=== PATIENT | male | born 1985 | race Caucasian/White ===

== ENCOUNTER 2021-09-14 01:19 | Observation (INO) | payer OTHER, SELFPAY ==
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
[2021-09-14 01:28] VITALS: BP 159/91; PULSE 82; RESP 16; TEMP 36.3; O2SAT 97; BMI 31.6
[2021-09-14] MEDS: lidocaine 1% INJ 20 mL INJECTION (01:46)
[2021-09-14] MEDS: cephALEXin 500 mg Capsule PO (01:46)
[2021-09-14] MEDS: nicotine 21 mg Patch 1 PATCH TRANSDERMA ×2 (02:45→16:55)
[2021-09-14 04:44] LABS: Basophils % 0.3 %; Eosinophils # 0.1 10^3/uL (0.0-0.8); Eosinophils % 0.8 %; Hematocrit 45.3 % (42.0-52.0); Hemoglobin 16.1 g/dL (11.7-16.6); Lymphocytes # 2.1 10^3/uL (0.8-4.8); Lymphocytes % 19.9 %; Mean Corpuscular HGB Conc 35.5 g/dL (30.0-36.0); Mean Corpuscular Hemoglobin 30.3 pg (28.0-34.0); Mean Corpuscular Volume 85.2 fl (80-94); Mean Platelet Volume 10.1 fL (7.4-10.4); Monocytes # 0.6 10^3/uL (0.2-0.9); Monocytes % 5.1 %; Neutrophils # 7.92 10^3/uL (1.8-7.7); Neutrophils % 73.6 %; Nucleated Red Blood Cells % 0 %; Platelet Count 218 10^3/cmm (130-400); Red Blood Count 5.32 10^6/uL (4.1-5.3); Red Cell Distribution Width 13.4 % (12.1-15.1); White Blood Count 10.8 10^3/uL (4.0-10.0)
[2021-09-14 04:55] LABS: Amphetamines Screen Urine Negative (Negative); Barbiturates Screen Urine Negative (Negative); Benzodiazepines Screen Urine Negative (Negative); Cocaine Screen Urine Negative (Negative); Opiate Screen Urine Negative (Negative); PCP Screen Urine Negative (Negative); THC Screen Urine Negative (Negative)
[2021-09-14 05:00] LABS: Acetaminophen < 5.0 ug/mL (10-30); Alanine Aminotransferase 30 U/L (0-41); Albumin Level 4.5 g/dL (3.5-5.2); Alcohol Level 113 mg/dL (0-10); Alkaline Phosphatase 83 IU/L (40-130); Anion Gap 19.2 (5-19); Aspartate Amino Transferase 27 U/L (0-40); Blood Urea Nitrogen 10 mg/dL (6-20); Calcium 9.3 mg/dL (8.5-10.5); Carbon Dioxide 22 mmol/L (22-29); Chloride 99 mmol/L (98-107); Globulin 3.5 g/dL (1.3-4.6); Glomerular Filtration Rate 108.2 mL/min (90-130); Glucose 100 mg/dL (65-115); Osmolality Calculated 281 mOsm/kg (285-295); Potassium 4.2 mmol/L (3.5-5.1); Salicylate < 0.3 mg/dL (3-10); Sodium 136 mmol/L (136-145); Total Bilirubin 0.3 mg/dL (0.15-1.2)
[2021-09-14 05:25] VITALS: BP 120/78; PULSE 104; RESP 18; O2SAT 97
[2021-09-14 07:50] VITALS: BP 120/78; PULSE 104; RESP 18; TEMP 36.3; O2SAT 97
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
[2021-09-14 14:00] VITALS: BP 120/78; PULSE 94; RESP 18; TEMP 36.6; O2SAT 98
[2021-09-14] MEDS: metoprolol succinate ER (24 HR) 50 mg Tablet PO (16:55)
[2021-09-14 20:25] VITALS: BP 110/66; PULSE 69; RESP 17; TEMP 36.8; O2SAT 97
[2021-09-15 06:00] VITALS: BP 116/70; PULSE 62; RESP 17; TEMP 36.6; O2SAT 96
[2021-09-15] MEDS: metoprolol succinate ER (24 HR) 50 mg Tablet PO (08:00)
[2021-09-15] MEDS: nicotine 2 mg Gum BUCCAL ×2 (09:44→12:23)
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
[2021-09-15] MEDS: cephALEXin 500 mg Capsule PO (11:59)
[2021-09-15] MEDS: BuSPIRONE 10 mg Tablet 15 MG PO (12:00)
[2021-09-15 12:06] VITALS: BP 116/70; PULSE 62; RESP 17; TEMP 36.6; O2SAT 96
== END 2021-09-15 12:23 | disposition home or self-care (01) ==
LOC: ER 04:41 → NP 06:18
PROVIDERS: Admitting Provider Psychiatry & Neurology Psychiatry; Emergency Provider Emergency Medicine; Visit Provider Psychiatry & Neurology Psychiatry
DX: F41.9 Anxiety disorder, unspecified (principal); F32.A Depression, unspecified; F43.25 Adjustment disorder with mixed disturbance of emotions and conduct; S61.412A Laceration without foreign body of left hand, initial encounter; W01.198A Fall on same level from slipping, tripping and stumbling with subsequent striking against other object, initial encounter; F17.210 Nicotine dependence, cigarettes, uncomplicated; Z62.820 Parent-biological child conflict; Z63.0 Problems in relationship with spouse or partner
CPT/HCPCS: 12001; 73130; 80053; 80306; 80307; 85025; 99285; G0378

== ENCOUNTER 2022-12-17 00:04 | Emergency (ER) | payer OTHER, SELFPAY ==
[2022-12-17 00:15] VITALS: BP 109/71; PULSE 86; RESP 20; TEMP 36.6; O2SAT 98; BMI 28.5
--- NOTE | 2022-12-17 00:19 | ECG_ITS ---
[facility] Test Date: 2022-12-17 Pat Name: Romeo Bill Department: Room: Gender: Male Red Leader: : 1985 Requested By: Gentry Harman Order Number: [id number] Savanah MD: Chi Egan M.D. Measurements Intervals [place] Rate: 86 P: 54 [place]: 211 QRS: 43 QRSD: 128 T: 51 QT: 393 QTc: 472 Interpretive Statements SINUS RHYTHM WITH FIRST DEGREE AV BLOCK LEFT ATRIAL ENLARGEMENT [-0.15mV P-WAVE IN V1/V2] PROBABLE INFERIOR MYOCARDIAL INFARCTION , OF INDETERMINATE AGE [35 ms Q WAVE IN II/aVF] Compared to ECG 03/22/2018 22:34:56 First degree AV block now present Atrial abnormality now present Myocardial infarct finding now present Sinus bradycardia no longer present Left anterior fascicular block no longer present ST (T wave) deviation no longer present Early repolarization no longer present Electronically Signed On 12-17-2022 14:44:58 CHIEF II DISPATCHER by Chi Egan M.D. [id number] f
--- NOTE | 2022-12-17 00:24 | XRR_ITS ---
PROCEDURE INFORMATION: Exam: XR Chest Exam date and time: 12/17/2022 12:42 AM Age: 37 years old Clinical indication: Pain; Patient HX: C/O palpitations TECHNIQUE: Imaging protocol: Radiologic exam of the chest. Views: 1 view. COMPARISON: CR XR chest 2V* [id number] 12/27/2021 10:50 AM FINDINGS: Lungs: Poor inspiratory effort with some crowding of pulmonary markings and possible accentuation of the apparent heart size. Pleural spaces: Unremarkable. No pleural effusion. No pneumothorax. Heart/Mediastinum: See Lungs finding. Bones/joints: Mild thoracic spondylosis. XR/XR chest 1V portable [id number] IMPRESSION: Poor inspiratory effort with some crowding of pulmonary markings and possible accentuation of the apparent heart size.
--- NOTE | 2022-12-17 00:39 | ED_ITS ---
HPI - Arrhythmia/Palpitations General: Chief Complaint: Arrhythmia/Palpitations Stated Complaint: irregular heartbeat Time Seen by Provider: 12/17/22 00:24 Source: patient Mode of arrival: ambulatory Limitations: no limitations History of Present Illness: 37-year-old male states that he did miss his met oprolol dose tonight states he has history of cardiac hypertrophic cardiomyopathy. He states that tonight he felt like his heart was racing he is having some palpitations he is also very anxious here. He has been drinking alcohol as well. He denies any worsening proving factors he denies any fevers had some mild dyspnea. Associated symptoms: Deny nausea or vomiting Review of Systems Const: Denies: fever(s), chills, body aches or change in appetite Eyes: Denies: blurry vision or eye discomfort ENMT: Denies: throat pain or dental pain Card: Reports: palpitations Resp: Denies: dyspnea GI: Denies: abdominal pain, nausea, vomiting or diarrhea : Denies: dysuria Musc: Denies: neck pain or back pain Skin/Breast: Denies: rash Neuro: Denies: headache(s) Psych: Denies: depression Erik/Lymph: Denies: easy bruising All/Imm: Denies: urticaria PFSH ED PFSH: Medical History (Updated 12/17/22 @ 01:40 by Gentry Harman MD) Anxiety Social History (Updated 12/17/22 @ 00:49 by Gentry Harman MD) Substance/Drug Use: never Physical Exam Const: COMMON NORMALS: no acute distress, patient oriented x3 and healthy appearing GENERAL APPEARANCE: anxious HENMT: COMMON NORMALS: normocephalic and atraumatic HEAD & SCALP: normocephalic and atraumatic Eye: COMMON NORMALS: Equal, round and reactive pupils present and EOMs intact bilaterally PUPIL: Yes Equal, round and reactive pupils present Neck/C-Spine: COMMON NORMALS: full ROM and supple Chest: COMMONS NORMALS: normal inspection of the chest and normal palpation of entire chest wall Resp: COMMON NORMALS: normal respiratory effort, No retractions, No use of accessory muscles and clear to auscultation bilaterally AUSCULTATION: clear to auscultation bilaterally Cardio: COMMON NORMALS: regular rate, regular rhythm and No murmurs present (Cardio) RATE: regular rate RHYTHM: regular rhythm GI: COMMON NORMALS: Normal to inspection, nondistended, normoactive bowel sounds present, Soft to palpation, non-tender and no masses PALPATION: Yes Soft to palpation Extremity: COMMON NORMALS: normal to inspection and full ROM Neuro: COMMON NORMALS: patient oriented x3, moves all extremities and no focal motor deficits Psych: COMMON NORMALS: mental status grossly normal, Normal thought process present and cooperative THOUGHT PROCESS: Normal thought process present Skin: COMMON NORMALS: no rashes or lesions noted and no wounds GENERAL SKIN EXAM: no rashes or lesions noted Course Vital Signs: Vital signs: Vital Signs Temperature 97.9 F 12/17/22 00:15 Pulse Rate 76 12/17/22 01:18 Respiratory Rate 20 H 12/17/22 01:18 Blood Pressure 122/74 12/17/22 01:18 Pulse Oximetry 94 12/17/22 01:18 Oxygen Delivery Me thod 12/17/22 01:18 MDM - Arrhythmia/Palpitations Medical Decision Making Patient presents here with palpitations he feels much improved here patient's blood work here is normal including a normal troponin he has no signs of acute coronary syndrome he is stable for discharge he is to follow-up with PCP and return if worsening. Lab Data 12/17/22 00:54 12/17/22 00:54 Radiology Impressions Chest X-Ray 12/17/22 00:24 IMPRESSION: Poor inspiratory effort with some crowding of pulmonary markings and possible accentuation of the apparent heart size. Laboratory Results WBC 8.6 10^3/uL (4.0-10.0) 12/17/22 00:54 RBC 4.88 10^6/uL (4.1-5.3) 12/17/22 00:54 Hgb 14.5 g/dL (11.7-16.6) 12/17/22 00:54 Hct 43.1 % (42.0-52.0) 12/17/22 00:54 MCV 88.3 fl (80-94) 12/17/22 00:54 MCH 29.7 pg (28.0-34.0) 12/17/22 00:54 MCHC 33.6 g/dL (30.0-36.0) 12/17/22 00:54 RDW 13.3 % (12.1-15.1) 12/17/22 00:54 Plt Count 234 10^3/cmm (130-400) 12/17/22 00:54 MPV 9.7 fL (7.4-10.4) 12/17/22 00:54 Neut % (Auto) 38.8 % 12/17/22 00:54 Lymph % (Auto) 50.3 % 12/17/22 00:54 [place] % (Auto) 6.5 % 12/17/22 00:54 Eos % (Auto) 3.8 % 12/17/22 00:54 Baso % (Auto) 0.5 % 12/17/22 00:54 Neut # (Auto) 3.33 10^3/uL (1.8-7.7) 12/17/22 00:54 Lymph # (Auto) 4.3 10^3/uL (0.8-4.8) 12/17/22 00:54 [place] # (Auto) 0.6 10^3/uL (0.2-0.9) 12/17/22 00:54 Eos # (Auto) 0.3 10^3/uL (0.0-0.8) 12/17/22 00:54 Baso # (Auto) 0.0 10^3/uL (0.0-0.1) 12/17/22 00:54 Nucleated RBC % (auto) 0 % 12/17/22 00:54 Nucleated RBCs # 0.0 /100WBC 12/17/22 00:54 Sodium 140 mmol/L (136-145) 12/17/22 00:54 Potassium 4.1 mmol/L (3.5-5.1) 12/17/22 00:54 Chloride 104 mmol/L (98-107) 12/17/22 00:54 Carbon Dioxide 22 mmol/L (22-29) 12/17/22 00:54 Anion Gap 18.1 (5-19) 12/17/22 00:54 BUN 17 mg/dL (6-20) 12/17/22 00:54 Creatinine 0.9 mg/dL (0.7-1.2) 12/17/22 00:54 GFR Calculation 93.9 mL/min (90-130) 12/17/22 00:54 Glucose 100 mg/dL (65-115) 12/17/22 00:54 Calculated Osmolality 292 mOsm/kg (285-295) 12/17/22 00:54 Calcium 9.0 mg/dL (8.5-10.5) 12/17/22 00:54 Total Bilirubin 0.2 mg/dL (0.15-1.2) 12/17/22 00:54 AST 18 U/L (0-40) 12/17/22 00:54 ALT 18 U/L (0-41) 12/17/22 00:54 Alkaline Phosphatase 103 U/L (40-130) 12/17/22 00:54 Troponin T Baseline 11 ng/L (0-15) 12/17/22 00:54 Total Protein 7.4 g/dL (6.6-8.7) 12/17/22 00:54 Albumin 4.5 g/dL (3.5-5.2) 12/17/22 00:54 Globulin 2.9 g/dL (1.3-4.6) 12/17/22 00:54 Ethyl Alcohol 211 mg/dL (0-10) H 12/17/22 00:54 EKG Data EKG 1: I personally reviewed and interpreted this EKG as follows: EKG interpretation date: 12/17/22 EKG interpretation time: 00:12 Interpretation: nsr hr [address] or t wave abnormalities qrs 128 qtc 437 Other EKG comments: Chest X-Ray 12/17/22 00:24 IMPRESSION: Poor inspiratory effort with some crowding of pulmonary markings and possible accentuation of the apparent heart size. Discharge Plan Discharge Patient Disposition: Home Clinical Impression: Palpitations Condition: Stable Prescriptions: No Action buspirone 10 mg Tablet 15 mg PO BID 30 Days Qty: 90 1RF Discharge Orders: Discharge ED (Routine); Ordered 12/17/22 Ordered By: Gentry Harman Discharge Diet: Advance as tolerated Discharge Activity: Resume usual activity Patient Instructions: Heart Palpitations (ED) Coding Level of Care Code ED Higher Education Administrator for Chg Fwd Exam Comprehensive
[2022-12-17] MEDS: metoprolol succinate ER (24 HR) 50 mg Tablet PO (00:58)
[2022-12-17 00:59] LABS: Basophils % 0.5 %; Eosinophils # 0.3 10^3/uL (0.0-0.8); Eosinophils % 3.8 %; Hematocrit 43.1 % (42.0-52.0); Hemoglobin 14.5 g/dL (11.7-16.6); Lymphocytes # 4.3 10^3/uL (0.8-4.8); Lymphocytes % 50.3 %; Mean Corpuscular HGB Conc 33.6 g/dL (30.0-36.0); Mean Corpuscular Hemoglobin 29.7 pg (28.0-34.0); Mean Corpuscular Volume 88.3 fl (80-94); Mean Platelet Volume 9.7 fL (7.4-10.4); Monocytes # 0.6 10^3/uL (0.2-0.9); Monocytes % 6.5 %; Neutrophils # 3.33 10^3/uL (1.8-7.7); Neutrophils % 38.8 %; Nucleated Red Blood Cells % 0 %; Platelet Count 234 10^3/cmm (130-400); Red Blood Count 4.88 10^6/uL (4.1-5.3); Red Cell Distribution Width 13.3 % (12.1-15.1); White Blood Count 8.6 10^3/uL (4.0-10.0)
[2022-12-17] MEDS: sodium chloride 0.9% 1,000 ML 999 ML IV (00:59)
[2022-12-17 01:18] VITALS: BP 122/74; PULSE 76; RESP 20; O2SAT 94
[2022-12-17 01:23] LABS: Alanine Aminotransferase 18 U/L (0-41); Albumin Level 4.5 g/dL (3.5-5.2); Alcohol Level 211 mg/dL (0-10); Alkaline Phosphatase 103 U/L (40-130); Anion Gap 18.1 (5-19); Aspartate Amino Transferase 18 U/L (0-40); Blood Urea Nitrogen 17 mg/dL (6-20); Carbon Dioxide 22 mmol/L (22-29); Chloride 104 mmol/L (98-107); Globulin 2.9 g/dL (1.3-4.6); Glomerular Filtration Rate 93.9 mL/min (90-130); Glucose 100 mg/dL (65-115); Osmolality Calculated 292 mOsm/kg (285-295); Potassium 4.1 mmol/L (3.5-5.1); Sodium 140 mmol/L (136-145); Total Bilirubin 0.2 mg/dL (0.15-1.2); Total Protein 7.4 g/dL (6.6-8.7)
[2022-12-17 01:24] LABS: Troponin(5th) Baseline 11 ng/L (0-15)
[2022-12-17 01:53] VITALS: BP 122/74; PULSE 100; RESP 18; O2SAT 95
== END 2022-12-17 01:57 | disposition home or self-care (01) ==
PROVIDERS: Emergency Provider Emergency Medicine
DX: R00.2 Palpitations (principal)
CPT/HCPCS: 71045; 80053; 80307; 84484; 85025; 93005; 99285; J7030

== ENCOUNTER 2023-06-12 15:11 | Emergency (ER) | payer OTHER, SELFPAY ==
[2023-06-12 15:17] VITALS: BP 152/80; PULSE 56; RESP 18; TEMP 36.7; O2SAT 99; BMI 28.5
--- NOTE | 2023-06-12 15:26 | ECG_ITS ---
[facility] Test Date: 2023-06-12 Pat Name: Romeo Bill Department: Room: Gender: Male Restaurant Manager: : 1985 Requested By: Jaspal Owen Order Number: [id number] Savanah MD: Ananya Vasquez M.D. Measurements Intervals [place] Rate: 57 P: 17 [place]: 185 QRS: 13 QRSD: 126 T: 54 QT: 444 QTc: 433 Interpretive Statements SINUS BRADYCARDIA POSSIBLE LEFT ATRIAL ENLARGEMENT [-0.1mV P-WAVE IN V1/V2] POSSIBLE RIGHT VENTRICULAR CONDUCTION DELAY [RSR (QR) IN V1/V2] Compared to ECG 12/17/2022 00:12:17 Sinus rhythm no longer present First degree AV block no longer present Myocardial infarct finding no longer present Electronically Signed On 06-12-2023 21:43:01 CDT by Ananya Vasquez M.D. [email or web address] [email or web address] [email or web address] Therapeuticsohio [facility].[employer]store/NU/[id number] f
--- NOTE | 2023-06-12 15:48 | XR_ITS ---
WS: [id number] Portable AP upright chest, 06/12/2023 Clinical Data: chest pain Comparison: Portable chest, 12/17/2022 Findings: No nodules, masses or effusions are seen. There is a patchy opacity at the right cardiophre kamron angle which may represent atelectasis. This opacity is not changed compared to 12/17/2022 The hear t is normal. The pulmonary vascularity is not increased. No pneumonia or pneumothorax is seen. XR/XR chest 1V portable [id number] Impression: Probable atelectasis at the right cardiophrenic angle.
--- NOTE | 2023-06-12 15:49 | ECG_ITS ---
[facility] Test Date: 2023-06-12 Pat Name: Romeo Bill Department: Room: Gender: Male Hr Consultant: : 1985 Requested By: Jaspal Owen Order Number: [id number] Savanah MD: Ananya Vasquez M.D. Measurements Intervals [place] Rate: 56 P: 55 MT: 193 QRS: 32 QRSD: 113 T: 62 QT: 442 QTc: 429 Interpretive Statements SINUS BRADYCARDIA POSSIBLE LEFT ATRIAL ENLARGEMENT [-0.1mV P-WAVE IN V1/V2] MODERATE INTRAVENTRICULAR CONDUCTION DELAY [110+ ms QRS DURATION] Compared to ECG 06/12/2023 15:23:46 Intraventricular conduction delay now present Electronically Signed On 06-12-2023 21:42:45 CDT by Ananya Vasquez M.D. [email or web address] [email or web address] [email or web address]/[id number]
--- NOTE | 2023-06-12 15:58 | W.ED.CHESTPA ---
Documented by User: Jaspal Wong DO 06/16/23 07:19 HPI - Chest Pain General: Chief Complaint: Chest Pain Stated Complaint: Chest pain, Left side numbness, headpain Time Seen by Provider: 06/12/23 15:39 Source: patient Mode of arrival: ambulatory History of Present Illness: 37-year-old male with a history of hypertrophic cardiomyopathy presents to the emergency room with complaints of chest pain for the last hour and a half. Patient has been evaluated at [place] by cardiology at [facility] [place] and they had recommend a surgery for myomectomy for his hypertrophic obstructive cardiomyopathy. He states he feels like he has a squeezing pressure sensation in his chest. Prior to arrival he had an EKG done at [facility] which she showed to me after he did that here for [facility]. We did to see the patient the computer read on the EKG shows acute ST elevation FL. Compared to previous EKGs it looks similar discussed these and reviewed with Dr. Gutierrez she did not feel there was a ST elevation FL at this time. MD complaint: chest pain Pertinent past history: coronary artery disease Onset (ago): minute(s) Onset: during rest and during exertion Pain location: substernal and left chest Pain radiation: none Severity: mild Quality: tightness and aching Relieving factors: nothing Exacerbating factors: nothing Context: recent illness Associated symptoms: Deny abdominal pain, diaphoresis, dyspnea, fever(s), leg edema, nausea, palpitations, sense of impending doom, syncope or vomiting Treatment prior to arrival: none Review of Systems Const: Denies: fever(s), fatigue, malaise or diaphoresis Card: Denies: chest pain, palpitations or syncope Resp: Denies: dyspnea, productive cough, non-productive cough or wheezing GI: Denies: abdominal pain, nausea or vomiting : Denies: flank pain, dysuria, urinary frequency or urinary urgency Musc: Denies: neck pain or back pain Skin/Breast: Denies: rash or pruritus PFSH ED PFSH: Medical History Anxiety Social History Substance/Drug Use: never Physical Exam Const: GENERAL APPEARANCE: cooperative and comfortable ORIENTATION/CONSCIOUSNESS: Yes awake, Yes oriented to person, Yes oriented to place and Yes oriented to time HENMT: COMMON NORMALS: normocephalic, atraumatic and hearing grossly normal bilaterally HEAD & SCALP: normocephalic and atraumatic Resp: COMMON NORMALS: normal respiratory effort, No retractions, No use of accessory muscles and clear to auscultation bilaterally AUSCULTATION: clear to auscultation bilaterally Cardio: COMMON NORMALS: regular rate, regular rhythm and No murmurs present (Cardio) RATE: regular rate RHYTHM: regular rhythm GI: COMMON NORMALS: Soft to palpation and No hepatosplenomegaly present AUSCULTATION: Yes normoactive bowel sounds PALPATION: Yes Soft to palpation, No Tenderness to palpation present (GI), No Guarding due to palpation present (GI) and Yes No hepatosplenomegaly present Extremity: COMMON NORMALS: normal to inspection, capillary refill normal, no clubbing, cyanosis or edema, no calf tenderness and no pedal edema Neuro: SENSORIUM/ORIENTATION: Yes oriented to person, Yes oriented to place and Yes oriented to time Skin: COMMON NORMALS: no rashes or lesions noted GENERAL SKIN EXAM: no rashes or lesions noted Course Vital Signs: Vital signs: Vital Signs Temperature 98.1 F 06/12/23 15:17 Pulse Rate 60 06/12/23 20:15 Respiratory Rate 18 06/12/23 20:15 Blood Pressure 154/85 06/12/23 20:15 Pulse Oximetry 98 06/12/23 20:15 Oxygen Delivery Me thod Room Air 06/12/23 19:01 MDM - Chest Pain Medical Decision Making Care signed out to Dr. Harman at change of shift. See final notes for diagnosis and disposition. Patient presents with chest pain atypical in nature his initial repeat troponins here are normal he feels much improved x-ray is normal no signs of acute coronary syndrome no signs of dissection or PE he is stable for discharge he is follow-up with PCP and return if worsening. Lab Data 06/12/23 16:23 06/12/23 16:23 Radiology Impressions Chest X-Ray 06/12/23 15:48 Impression: Probable atelectasis at the right cardiophrenic angle. Laboratory Results WBC 8.6 10^3/uL (4.0-10.0) 06/12/23 16:23 RBC 5.02 10^6/uL (4.1-5.3) 06/12/23 16: Hgb 14.9 g/dL (11.7-16.6) 06/12/23 16: Hct 44.9 % (42.0-52.0) 06/12/23 16: MCV 89.4 fl (80-94) 06/12/23 16: MCH 29.7 pg (28.0-34.0) 06/12/23 16: MCHC 33.2 g/dL (30.0-36.0) 06/12/23 16: RDW 14.3 % (12.1-15.1) 06/12/23 16: Plt Count 204 10^3/cmm (130-400) 06/12/23 16: MPV 10.0 fL (7.4-10.4) 06/12/23 16: Neut % (Auto) 57.1 % 06/12/23 16: Lymph % (Auto) 31.7 % 06/12/23 16:23 [place] % (Auto) 7.1 % 06/12/23 16: Eos % (Auto) 3.4 % 06/12/23 16: Baso % (Auto) 0.5 % 06/12/23 16: Neut # (Auto) 4.90 10^3/uL (1.8-7.7) 06/12/23 16: Lymph # (Auto) 2.7 10^3/uL (0.8-4.8) 06/12/23 16: [place] # (Auto) 0.6 10^3/uL (0.2-0.9) 06/12/23 16: Eos # (Auto) 0.3 10^3/uL (0.0-0.8) 06/12/23: Baso # (Auto) 0.0 10^3/uL (0.0-0.1) 06/12/23 16: Nucleated RBC % (auto) 0 % 06/12/23 16: Nucleated RBCs # 0.0 /100WBC 06/12/23 16: Sodium 140 mmol/L (136-145) 06/12/23 16:23 Potassium 4.6 mmol/L (3.5-5.1) 06/12/23 16:23 Chloride 103 mmol/L (98-107) 06/12/23 16:23 Carbon Dioxide 28 mmol/L (22-29) 06/12/23 16:23 Anion Gap 13.6 (5-19) 06/12/23 16:23 BUN 13 mg/dL (6-20) 06/12/23 16:23 Creatinine 0.9 mg/dL (0.7-1.2) 06/12/23 16:23 GFR Calculation 93.9 mL/min (90-130) 06/12/23 16:23 Glucose 88 mg/dL (65-115) 06/12/23 16:23 Calculated Osmolality 290 mOsm/kg (285-295) 06/12/23 16:23 Calcium 9.2 mg/dL (8.5-10.5) 06/12/23 16:23 Total Bilirubin 0.2 mg/dL (0.15-1.2) 06/12/23 16:23 AST 19 U/L (0-40) 06/12/23 16:23 ALT 17 U/L (0-41) 06/12/23 16:23 Alkaline Phosphatase 80 U/L (40-130) 06/12/23 16:23 Troponin T Baseline 11 ng/L (0-15) 06/12/23 16:23 Troponin T 120 Minute 8.58 ng/L (0-15) 06/12/23 18:31 Delta Troponin T -2.42 ABS# (0-10) L 06/12/23 18:31 Total Protein 6.6 g/dL (6.6-8.7) 06/12/23 16:23 Albumin 4.2 g/dL (3.5-5.2) 06/12/23 16:23 Globulin 2.4 g/dL (1.3-4.6) 06/12/23 16:23 Lipase 21 U/L (13-60) 06/12/23 18:31 Ethyl Alcohol < 10 mg/dL (0-10) 06/12/23 18:31 Discharge Plan Discharge Patient Disposition: Home Clinical Impression: Chest pain Condition: Stable Prescriptions: No Action metoprolol succinate 50 mg tablet extended release 24 hr 50 mg PO DAILY levothyroxine 50 mcg tablet 50 mcg PO DAILY buspirone 15 mg tablet 15 mg PO DAILY Discharge Orders: Discharge ED (Routine); Ordered 06/12/23 Ordered By: Gentry Harman Referrals: Cirilo Ortiz MD [Primary Care Provider] - 1-3 days Discharge Diet: Advance as tolerated Discharge Activity: Resume usual activity Patient Instructions: Chest Pain (ED) Coding Level of Care Code ED Fuel Truck Driver for Chg Fwd Documented by User: Gentry Harman MD 06/12/23 19:52 HPI - Chest Pain General: Chief Complaint: Chest Pain Stated Complaint: Chest pain, Left side numbness, headpain Time Seen by Provider: 06/12/23 15:39 History of Present Illness: . [facility] ED PFSH: Medical History Anxiety Social History Substance/Drug Use: never Course Vital Signs: Vital signs: Vital Signs Temperature 98.1 F 06/12/23 15:17 Pulse Rate 60 06/12/23 20:15 Respiratory Rate 18 06/12/23 20:15 Blood Pressure 154/85 06/12/23 20:15 Pulse Oximetry 98 06/12/23 20:15 Oxygen Delivery Me thod Room Air 06/12/23 19:01 MDM - Chest Pain Medical Decision Making Patient presents with chest pain atypical in nature his initial repeat troponins here are normal he feels much improved x-ray is normal no signs of acute coronary syndrome no signs of dissection or PE he is stable for discharge he is follow-up with PCP and return if worsening. Medical Records I reviewed the patient's medical records. Lab Data I reviewed the patient's lab results. 06/12/23 16:23 06/12/23 16:23 Radiology Impressions Chest X-Ray 06/12/23 15:48 Impression: Probable atelectasis at the right cardiophrenic angle. Laboratory Results WBC 8.6 10^3/uL (4.0-10.0) 06/12/23 16: RBC 5.02 10^6/uL (4.1-5.3) 06/12/23 16: Hgb 14.9 g/dL (11.7-16.6) 06/12/23 16: Hct 44.9 % (42.0-52.0) 06/12/23 16: MCV 89.4 fl (80-94) 06/12/23 16: MCH 29.7 pg (28.0-34.0) 06/12/23 16: MCHC 33.2 g/dL (30.0-36.0) 06/12/23: RDW 14.3 % (12.1-15.1) 06/12/23 16: Plt Count 204 10^3/cmm (130-400) 06/12/23 16: MPV 10.0 fL (7.4-10.4) 06/12/23 16: Neut % (Auto) 57.1 % 06/12/23 16: Lymph % (Auto) 31.7 % 06/12/23 16: [place] % (Auto) 7.1 % 06/12/23 16: Eos % (Auto) 3.4 % 06/12/23: Baso % (Auto) 0.5 % 06/12/23: Neut # (Auto) 4.90 10^3/uL (1.8-7.7) 06/12/23 16: Lymph # (Auto) 2.7 10^3/uL (0.8-4.8) 06/12/23 16: [place] # (Auto) 0.6 10^3/uL (0.2-0.9) 06/12/23: Eos # (Auto) 0.3 10^3/uL (0.0-0.8) 06/12/23 16: Baso # (Auto) 0.0 10^3/uL (0.0-0.1) 06/12/23 16: Nucleated RBC % (auto) 0 % 06/12/23 16: Nucleated RBCs # 0.0 /100WBC 06/12/23 16:23 Sodium 140 mmol/L (136-145) 06/12/23 16:23 Potassium 4.6 mmol/L (3.5-5.1) 06/12/23 16:23 Chloride 103 mmol/L (98-107) 06/12/23 16:23 Carbon Dioxide 28 mmol/L (22-29) 06/12/23 16:23 Anion Gap 13.6 (5-19) 06/12/23 16:23 BUN 13 mg/dL (6-20) 06/12/23 16:23 Creatinine 0.9 mg/dL (0.7-1.2) 06/12/23 16:23 GFR Calculation 93.9 mL/min (90-130) 06/12/23 16: Glucose 88 mg/dL (65-115) 06/12/23 16:23 Calculated Osmolality 290 mOsm/kg (285-295) 06/12/23 16:23 Calcium 9.2 mg/dL (8.5-10.5) 06/12/23 16:23 Total Bilirubin 0.2 mg/dL (0.15-1.2) 06/12/23 16:23 AST 19 U/L (0-40) 06/12/23 16:23 ALT 17 U/L (0-41) 06/12/23 16:23 Alkaline Phosphatase 80 U/L (40-130) 06/12/23 16:23 Troponin T Baseline 11 ng/L (0-15) 06/12/23 16:23 Troponin T 120 Minute 8.58 ng/L (0-15) 06/12/23 18:31 Delta Troponin T -2.42 ABS# (0-10) L 06/12/23 18:31 Total Protein 6.6 g/dL (6.6-8.7) 06/12/23 16:23 Albumin 4.2 g/dL (3.5-5.2) 06/12/23 16:23 Globulin 2.4 g/dL (1.3-4.6) 06/12/23 16:23 Lipase 21 U/L (13-60) 06/12/23 18:31 Ethyl Alcohol < 10 mg/dL (0-10) 06/12/23 18:31 Discharge Plan Discharge Patient Disposition: Home Clinical Impression: Chest pain Condition: Stable Prescriptions: No Action metoprolol succinate 50 mg tablet extended release 24 hr 50 mg PO DAILY levothyroxine 50 mcg tablet 50 mcg PO DAILY buspirone 15 mg tablet 15 mg PO DAILY Discharge Orders: Discharge ED (Routine); Ordered 06/12/23 Ordered By: Gentry Harman Referrals: Cirilo Ortiz MD [Primary Care Provider] - 1-3 days Discharge Diet: Advance as tolerated Discharge Activity: Resume usual activity Patient Instructions: Chest Pain (ED) Coding Level of Care Code ED Fuel Truck Driver for Stephanie Pineda
[2023-06-12 16:23] VITALS: BP 125/65
[2023-06-12 16:54] LABS: Basophils % 0.5 %; Eosinophils # 0.3 10^3/uL (0.0-0.8); Eosinophils % 3.4 %; Hematocrit 44.9 % (42.0-52.0); Hemoglobin 14.9 g/dL (11.7-16.6); Lymphocytes # 2.7 10^3/uL (0.8-4.8); Lymphocytes % 31.7 %; Mean Corpuscular HGB Conc 33.2 g/dL (30.0-36.0); Mean Corpuscular Hemoglobin 29.7 pg (28.0-34.0); Mean Corpuscular Volume 89.4 fl (80-94); Monocytes # 0.6 10^3/uL (0.2-0.9); Monocytes % 7.1 %; Neutrophils % 57.1 %; Nucleated Red Blood Cells % 0 %; Platelet Count 204 10^3/cmm (130-400); Red Blood Count 5.02 10^6/uL (4.1-5.3); Red Cell Distribution Width 14.3 % (12.1-15.1); White Blood Count 8.6 10^3/uL (4.0-10.0)
[2023-06-12 17:21] LABS: Alanine Aminotransferase 17 U/L (0-41); Albumin Level 4.2 g/dL (3.5-5.2); Alkaline Phosphatase 80 U/L (40-130); Aspartate Amino Transferase 19 U/L (0-40); Blood Urea Nitrogen 13 mg/dL (6-20); Calcium 9.2 mg/dL (8.5-10.5); Carbon Dioxide 28 mmol/L (22-29); Chloride 103 mmol/L (98-107); Globulin 2.4 g/dL (1.3-4.6); Glomerular Filtration Rate 93.9 mL/min (90-130); Glucose 88 mg/dL (65-115); Osmolality Calculated 290 mOsm/kg (285-295); Sodium 140 mmol/L (136-145); Total Bilirubin 0.2 mg/dL (0.15-1.2); Total Protein 6.6 g/dL (6.6-8.7)
[2023-06-12 17:24] LABS: Troponin(5th) Baseline 11 ng/L (0-15)
[2023-06-12 17:33] LABS: Anion Gap 13.6 (5-19); Potassium 4.6 mmol/L (3.5-5.1)
--- NOTE | 2023-06-12 17:49 | ECG_ITS ---
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 Measurements Intervals [place] Rate: 57 P: 18 DE: 189 QRS: 19 QRSD: 121 T: 67 QT: 453 QTc: 442 Interpretive Statements SINUS BRADYCARDIA POSSIBLE LEFT ATRIAL ENLARGEMENT [-0.1mV P-WAVE IN V1/V2] POSSIBLE RIGHT VENTRICULAR CONDUCTION DELAY [RSR (QR) IN V1/V2] MODERATE ST DEPRESSION [0.05+ mV ST DEPRESSION] Compared to ECG 06/12/2023 16:41:23 ST (T wave) deviation now present Intraventricular conduction delay no longer present Electronically Signed On 06-12-2023 21:44:16 CDT by Ananya Vasquez M.D. [id number]
[2023-06-12 18:07] VITALS: PULSE 68; RESP 18; O2SAT 98
--- NOTE | 2023-06-12 19:00 | PC.NURSE ---
Pt report recieved from Armida PULIDO. Pt laying in bed, pt does not appear to be in distress at this time. Pt denies needs at this time.
[2023-06-12 19:01] VITALS: O2SAT 98
[2023-06-12 19:40] LABS: Troponin 5 2HR 8.58 ng/L (0-15)
[2023-06-12 19:41] LABS: Lipase 21 U/L (13-60)
[2023-06-12 19:42] LABS: Alcohol Level < 10 mg/dL (0-10)
[2023-06-12 19:55] LABS: Troponin 5 2HR Delta -2.42 ABS# (0-10)
[2023-06-12 20:15] VITALS: BP 154/85; PULSE 60; RESP 18; O2SAT 98
== END 2023-06-12 20:17 | disposition home or self-care (01) ==
PROVIDERS: Family Medicine; Emergency Provider Emergency Medicine; PCP Family Medicine
DX: R07.9 Chest pain, unspecified (principal)
CPT/HCPCS: 36415; 71045; 80053; 80307; 83690; 84484; 85025; 93005; 99285

== ENCOUNTER 2023-11-04 03:25 | Emergency (ER) | payer OTHER, SELFPAY ==
--- NOTE | 2023-11-04 03:30 | ECG_ITS ---
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 Measurements Intervals [place] Rate: 80 P: 22 NC: 251 QRS: 119 QRSD: 115 T: -6 QT: 398 QTc: 461 Interpretive Statements SINUS RHYTHM WITH FIRST DEGREE AV BLOCK POSSIBLE LEFT ATRIAL ENLARGEMENT [-0.1mV P-WAVE IN V1/V2] POSSIBLE RIGHT VENTRICULAR HYPERTROPHY POSSIBLE ANTERIOR MYOCARDIAL INFARCTION , OF INDETERMINATE AGE PROBABLE INFERIOR MYOCARDIAL INFARCTION , OF INDETERMINATE AGE Compared to ECG 06/12/2023 18:29:22 First degree AV block now present Myocardial infarct finding now present Sinus bradycardia no longer present ST (T wave) deviation no longer present Electronically Signed On 11-04-2023 6:27:14 SUPPLIER QUALITY ENGINEERING MANAGER by Ananya Vasquez M.D. [id number] f
[2023-11-04 03:31] VITALS: BP 133/93; PULSE 80; RESP 20; TEMP 36.6; O2SAT 98
--- NOTE | 2023-11-04 03:43 | XRR_ITS ---
PROCEDURE INFORMATION: Exam: XR Chest Exam date and time: 11/04/2023 3:48 AM Age: 38 years old Clinical indication: Chest wall pain and other: Palps; Patient HX: Patient has a surgery for defibrillator to be put in Friday, came in today for major chest pain and palps; Additional info: Cxp TECHNIQUE: Imaging protocol: Radiologic exam of the chest. Views: 1 view. COMPARISON: CR XR chest 1V portable [id number] 06/12/2023 3:57 PM FINDINGS: Lungs: Hyperinflation and mild interstitial prominence, without acute airspace disease. Pleural spaces: No pleural effusion. Heart/Mediastinum: Epicardial fat accentuates the cardiac silhouette. Bones/joints: Unremarkable. XR/XR chest 1V portable [id number] IMPRESSION: Hyperinflation and mild interstitial prominence, without acute airspace disease.
[2023-11-04 03:51] LABS: Basophils % 0.5 %; Eosinophils # 0.5 10^3/uL (0.0-0.8); Eosinophils % 5.6 %; Hematocrit 47.7 % (37-53); Lymphocytes # 4.3 10^3/uL (0.8-4.8); Lymphocytes % 53.9 %; Mean Corpuscular HGB Conc 33.5 g/dL (30-55); Mean Corpuscular Hemoglobin 29.6 pg (27-33); Mean Corpuscular Volume 88.2 fl (82-101); Mean Platelet Volume 9.8 fL (7.4-10.4); Monocytes # 0.4 10^3/uL (0.2-0.9); Monocytes % 5.5 %; Neutrophils # 2.74 10^3/uL (1.8-7.7); Neutrophils % 34.3 %; Nucleated Red Blood Cells % 0 %; Platelet Count 224 10^3/cmm (157-399); Red Blood Count 5.41 10^6/uL (3.85-5.65); Red Cell Distribution Width 13.7 % (12.1-15.1); White Blood Count 8.01 10^3/uL (3.29-11.43)
[2023-11-04 04:10] LABS: Troponin(5th) Baseline 9 ng/L (0-15)
[2023-11-04 04:20] LABS: Alanine Aminotransferase 25 U/L (0-41); Albumin Level 4.9 g/dL (3.5-5.2); Alcohol Level 257 mg/dL (0-10); Alkaline Phosphatase 109 U/L (40-130); Anion Gap 19.5 (5-19); Aspartate Amino Transferase 24 U/L (0-40); Blood Urea Nitrogen 14 mg/dL (6-20); Calcium 9.8 mg/dL (8.5-10.5); Carbon Dioxide 22 mmol/L (22-29); Chloride 103 mmol/L (98-107); Globulin 3.4 g/dL (1.3-4.6); Glomerular Filtration Rate 93.5 mL/min (90-130); Glucose 100 mg/dL (65-115); NT Pro B Type Natriuretic Pept 310 pg/mL (0-125); Osmolality Calculated 291 mOsm/kg (285-295); Potassium 4.5 mmol/L (3.5-5.1); Sodium 140 mmol/L (136-145); Total Bilirubin 0.2 mg/dL (0.15-1.2); Total Protein 8.3 g/dL (6.6-8.7)
[2023-11-04 04:26] VITALS: BP 133/93; PULSE 80; RESP 20; TEMP 36.6; O2SAT 98
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
== END 2023-11-04 04:28 | disposition left against medical advice (07) ==
PROVIDERS: Emergency Provider Internal Medicine; PCP Family Medicine
DX: R07.89 Other chest pain (principal); F10.129 Alcohol abuse with intoxication, unspecified; Y90.8 Blood alcohol level of 240 mg/100 ml or more; Z53.29 Procedure and treatment not carried out because of patient's decision for other reasons
CPT/HCPCS: 71045; 80053; 80307; 83880; 84484; 85025; 93005; 99285

== ENCOUNTER 2024-06-22 18:11 | Emergency (ER) | payer OTHER, SELFPAY ==
[2024-06-22 18:14] VITALS: BP 142/89; PULSE 62; RESP 16; TEMP 36.4; O2SAT 99
--- NOTE | 2024-06-22 18:19 | ECG_ITS ---
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 Measurements Intervals [place] Rate: 61 P: 30 VT: 192 QRS: 64 QRSD: 129 T: 54 QT: 416 QTc: 420 Interpretive Statements SINUS RHYTHM POSSIBLE LEFT ATRIAL ENLARGEMENT [-0.1mV P-WAVE IN V1/V2] PROBABLE INFERIOR MYOCARDIAL INFARCTION , OF INDETERMINATE AGE [35 ms Q WAVE IN II/aVF] Compared to ECG 11/04/2023 03:30:03 First degree AV block no longer present Myocardial infarct finding still present Electronically Signed On 06-23-2024 10:32:36 CDT by Chi Egan M.D. [email or web address].Dental [email or web address]/store/[id number] f
--- NOTE | 2024-06-22 18:19 | XRR_ITS ---
PROCEDURE INFORMATION: Exam: XR Chest Exam date and time: 06/22/2024 6:23 PM Age: 38 years old Clinical indication: Pain; Chest pressure; Prior surgery; Surgery date: 6+ months; Surgery type: Defib; Additional info: Cp TECHNIQUE: Imaging protocol: Radiologic exam of the chest. Views: 1 view. COMPARISON: CR XR chest 1V portable [id number] 11/04/2023 3:48 AM FINDINGS: Tubes, catheters and devices: commission broker in place. Lungs: No focal consolidation or other acute appearing pulmonary opacity. Pleural spaces: No pleural effusion or pneumothorax noted. Heart/Mediastinum: There is cardiomegaly. Bones/joints: No acute osseous abnormality. Intraperitoneal space: There is no free intraperitoneal gas. XR/XR chest 1V portable [id number] IMPRESSION: No acute cardiopulmonary disease.
[2024-06-22 18:38] LABS: Basophils # 0.1 10^3/uL (0.0-0.1); Basophils % 0.7 %; Eosinophils # 0.4 10^3/uL (0.0-0.8); Eosinophils % 5.9 %; Hematocrit 45.6 % (37-53); Lymphocytes # 3.1 10^3/uL (0.8-4.8); Mean Corpuscular HGB Conc 33.1 g/dL (30-55); Mean Corpuscular Hemoglobin 29.3 pg (27-33); Mean Corpuscular Volume 88.4 fl (82-101); Mean Platelet Volume 9.8 fL (7.4-10.4); Monocytes # 0.6 10^3/uL (0.2-0.9); Monocytes % 7.8 %; Neutrophils # 3.03 10^3/uL (1.8-7.7); Neutrophils % 42.5 %; Nucleated Red Blood Cells % 0 %; Platelet Count 205 10^3/cmm (157-399); Red Blood Count 5.16 10^6/uL (3.85-5.65); Red Cell Distribution Width 13.7 % (12.1-15.1); White Blood Count 7.14 10^3/uL (3.29-11.43)
[2024-06-22 18:54] LABS: Troponin(5th) Baseline 8 ng/L (0-15)
--- NOTE | 2024-06-22 19:09 | ED_ITS ---
HPI - Chest Pain 2 General: Chief Complaint: Chest Pain Stated Complaint: Cp Time Seen by Provider: 06/22/24 19:00 History of Present Illness: Patient presents to the ER with chest pressure and intermittent chest pain for the last 5 days approximately. 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 He got his last shipment on Friday and he is on for sure if the medicine is working or not because he is having all of his old symptoms back. Review of Systems 2 General: Reports: 10 or more systems reviewed and unremarkable except in HPI and below PFSH ED 2 PFSH: Medical History Anxiety Social History Substance/Drug Use: never Physical Exam 2 Const: COMMON NORMALS: no acute distress, average body habitus, patient oriented x3, no limitations, healthy appearing, alert and well nourished HENMT: COMMON NORMALS: normocephalic, atraumatic, hearing grossly normal bilaterally, external ears normal, Normal external nose present and moist oral mucous membranes HEAD & SCALP: normocephalic and atraumatic NOSE: Normal external nose present EXTERNAL EAR: Yes external ears normal Neck/C-Spine: COMMON NORMALS: full ROM, no lymphadenopathy, supple, no meningeal signs, no JVD and Thyroid normal THYROID: Thyroid normal Chest: COMMONS NORMALS: normal inspection of the chest and normal palpation of entire chest wall Resp: COMMON NORMALS: normal respiratory effort, No retractions, No use of accessory muscles and clear to auscultation bilaterally AUSCULTATION: clear to auscultation bilaterally Cardio: COMMON NORMALS: no JVD, regular rate, regular rhythm, S1 normal heart sound present, S2 normal heart sound present, No gallops present (Cardio) and No clicks present (Cardio); negative for No murmurs present (Cardio) (3/6 systolic ejection murmur) RATE: regular rate RHYTHM: regular rhythm HEART SOUNDS: S1 normal heart sound present and S2 normal heart sound present GI: COMMON NORMALS: Normal to inspection, nondistended, normoactive bowel sounds present, Soft to palpation, non-tender, No hepatosplenomegaly present and no masses PALPATION: Yes Soft to palpation and Yes No hepatosplenomegaly present Neuro: COMMON NORMALS: patient oriented x3 SENSORIUM/ORIENTATION: Yes alert MENINGEAL SIGNS: Yes no meningeal signs Course 2 Vital Signs: Vital signs: Vital Signs Temperature 97.5 F L 06/22/24 18:14 Pulse Rate 62 06/22/24 18:14 Respiratory Rate 16 06/22/24 18:14 Blood Pressure 142/89 06/22/24 18:14 Pulse Oximetry 99 06/22/24 18:14 Oxygen Delivery Me thod Room Air 06/22/24 18:14 MDM - Chest Pain Medical Decision Making He was worked up in a standard chest pain fashion with serial EKGs, chest x-ray, serial enzymes, all of which was essentially benign. Patient was informed of these results and patient will be discharged home. Patient will call his home energy rater about [place] tomorrow and discussed the new medicine and possible side effects with him. Differential Diagnosis Unlikely acute massive pulmonary embolism, acute respiratory failure, acute myocardial infarction, cardiac arrest or sudden cardiac Medical Records I reviewed the patient's medical records. Lab Data I reviewed the patient's lab results. 06/22/24 18:30 06/22/24 18:30 Radiology Impressions Chest X-Ray 06/22/24 18:19 IMPRESSION: No acute cardiopulmonary disease. Laboratory Results WBC 7.14 10^3/uL (3.29-11.43) 06/22/24 18:30 RBC 5.16 10^6/uL (3.85-5.65) 06/22/24 18:30 Hgb 15.10 g/dL (11.27-16.99) 06/22/24 18:30 Hct 45.6 % (37-53) 06/22/24 18:30 MCV 88.4 fl (82-101) 06/22/24 18:30 MCH 29.3 pg (27-33) 06/22/24 18:30 MCHC 33.1 g/dL (30-55) 06/22/24 18:30 RDW 13.7 % (12.1-15.1) 06/22/24 18:30 Plt Count 205 10^3/cmm (157-399) 06/22/24 18:30 MPV 9.8 fL (7.4-10.4) 06/22/24 18:30 Neut % (Auto) 42.5 % 06/22/24 18:30 Lymph % (Auto) 43.0 % 06/22/24 18:30 [place] % (Auto) 7.8 % 06/22/24 18:30 Eos % (Auto) 5.9 % 06/22/24 18:30 Baso % (Auto) 0.7 % 06/22/24 18:30 Neut # (Auto) 3.03 10^3/uL (1.8-7.7) 06/22/24 18:30 Lymph # (Auto) 3.1 10^3/uL (0.8-4.8) 06/22/24 18:30 [place] # (Auto) 0.6 10^3/uL (0.2-0.9) 06/22/24 18:30 Eos # (Auto) 0.4 10^3/uL (0.0-0.8) 06/22/24 18:30 Baso # (Auto) 0.1 10^3/uL (0.0-0.1) 06/22/24 18:30 Nucleated RBC % (auto) 0 % 06/22/24 18:30 Nucleated RBCs # 0.0 /100WBC 06/22/24 18:30 Sodium 141 mmol/L (136-145) 06/22/24 18:30 Potassium 4.8 mmol/L (3.5-5.1) 06/22/24 18:30 Chloride 102 mmol/L (98-107) 06/22/24 18:30 Carbon Dioxide 29 mmol/L (22-29) 06/22/24 18:30 Anion Gap 14.8 (5-19) 06/22/24 18:30 BUN 18 mg/dL (6-20) 06/22/24 18:30 Creatinine 1.0 mg/dL (0.7-1.2) 06/22/24 18:30 GFR Calculation 82.8 mL/min (90-130) L 06/22/24 18:30 Glucose 88 mg/dL (65-115) 06/22/24 18:30 Calculated Osmolality 293 mOsm/kg (285-295) 06/22/24 18:30 Calcium 9.3 mg/dL (8.5-10.5) 06/22/24 18:30 Total Bilirubin 0.4 mg/dL (0.15-1.2) 06/22/24 18:30 AST 22 U/L (0-40) 06/22/24 18:30 ALT 25 U/L (0-41) 06/22/24 18:30 Alkaline Phosphatase 87 U/L (40-130) 06/22/24 18:30 Troponin T Baseline 8 ng/L (0-15) 06/22/24 18:30 Troponin T 120 Minute 8.04 ng/L (0-15) 06/22/24 20:47 Delta Troponin T 0.04 ABS# (0-10) 06/22/24 20:47 Total Protein 7.3 g/dL (6.6-8.7) 06/22/24 18:30 Albumin 4.5 g/dL (3.5-5.2) 06/22/24 18:30 Globulin 2.8 g/dL (1.3-4.6) 06/22/24 18:30 Lipase 31 U/L (13-60) 06/22/24 18:30 All radiology interpretation(s) finalized by discharge Discharge Plan Discharge Patient Disposition: Home Clinical Impression: Chest pain Qualifiers: Chest pain type: unspecified Qualified Code(s): R07.9 - Chest pain, unspecified Condition: Stable Prescriptions: No Action metoprolol succinate 50 mg tablet extended release 24 hr 50 mg PO DAILY levothyroxine 50 mcg tablet 50 mcg PO DAILY buspirone 15 mg tablet 15 mg PO DAILY Discharge Orders: Discharge ED (Routine); Ordered 06/22/24 Ordered By: Angel Piedra Referrals: Cirilo Ortiz MD [Primary Care Provider] - 1 week Patient Instructions: Chest Pain (DC) Activity Restrictions/Additional Instructions: Thank you for choosing [facility] for your healthcare needs today. Please realize that you were seen in the emergency department and that we are providing you with an emergency medical screening exam and this may not be a complete and all exclusive of all testing and/or medical workup we may need to determine your element or severity of your illness. It is very important that you follow-up as instructed with your primary care provider or specialist for the additional evaluation and to discuss your medical treatment plan. You may return to the emergency department should you have concerns or if your condition changes or worsens in any way. Coding Level of Care Code ED Assistant Men'S Soccer Coach for Stephanie Pineda
[2024-06-22 19:11] LABS: Alanine Aminotransferase 25 U/L (0-41); Albumin Level 4.5 g/dL (3.5-5.2); Alkaline Phosphatase 87 U/L (40-130); Anion Gap 14.8 (5-19); Aspartate Amino Transferase 22 U/L (0-40); Blood Urea Nitrogen 18 mg/dL (6-20); Calcium 9.3 mg/dL (8.5-10.5); Carbon Dioxide 29 mmol/L (22-29); Chloride 102 mmol/L (98-107); Creatinine Clr Calc Pharmacy 119.6017; Globulin 2.8 g/dL (1.3-4.6); Glomerular Filtration Rate 82.8 mL/min (90-130); Glucose 88 mg/dL (65-115); Lipase 31 U/L (13-60); Osmolality Calculated 293 mOsm/kg (285-295); Potassium 4.8 mmol/L (3.5-5.1); Sodium 141 mmol/L (136-145); Total Bilirubin 0.4 mg/dL (0.15-1.2); Total Protein 7.3 g/dL (6.6-8.7)
--- NOTE | 2024-06-22 20:19 | ECG_ITS ---
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 Measurements Intervals [place] Rate: 63 P: 37 NV: 199 QRS: 43 QRSD: 109 T: 66 QT: 394 QTc: 404 Interpretive Statements SINUS RHYTHM POSSIBLE LEFT ATRIAL ENLARGEMENT [-0.1mV P-WAVE IN V1/V2] POSSIBLE ANTERIOR MYOCARDIAL INFARCTION , OF INDETERMINATE AGE [30 ms Q WAVE IN V3/V4, OR R < 0.2 mV IN V4] Compared to ECG 06/22/2024 18:12:26 No significant changes Electronically Signed On 06-23-2024 10:34:35 CDT by Chi Egan M.D. [id number]
[2024-06-22 21:07] LABS: Troponin 5 2HR 8.04 ng/L (0-15); Troponin 5 2HR Delta 0.04 ABS# (0-10)
[2024-06-22 22:31] VITALS: BP 149/100; PULSE 59; RESP 16; TEMP 36.4; O2SAT 98
== END 2024-06-22 22:34 | disposition home or self-care (01) ==
PROVIDERS: Emergency Medicine; Emergency Provider Emergency Medicine; PCP Family Medicine
DX: R07.9 Chest pain, unspecified (principal)
CPT/HCPCS: 36415; 71045; 80053; 83690; 84484; 85025; 93005; 99285

== ENCOUNTER 2024-08-25 19:38 | Emergency (ER) | payer OTHER, SELFPAY ==
--- NOTE | 2024-08-25 19:37 | ECG_ITS ---
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 Measurements Intervals [place] Rate: 119 P: 68 [place]: 221 QRS: 35 QRSD: 107 T: 56 QT: 312 QTc: 440 Interpretive Statements SINUS TACHYCARDIA WITH FIRST DEGREE AV BLOCK WITH FREQUENT VENTRICULAR PREMATURE COMPLEXES. short runs of PAT's POSSIBLE LEFT ATRIAL ENLARGEMENT [-0.1mV P-WAVE IN V1/V2] MINIMAL ST DEPRESSION [0.025+ mV ST DEPRESSION] Compared to ECG 06/22/2024 20:15:08 Ventricular premature complex(es) now present First degree AV block now present ST (T wave) deviation now present Sinus rhythm no longer present Myocardial infarct finding no longer present Electronically Signed On 08-25-2024 23:00:59 CDT by Garfield Isidro M.D. [email or web address]/store/[id number]
--- NOTE | 2024-08-25 19:39 | XRR_ITS ---
PROCEDURE INFORMATION: Exam: XR Chest Exam date and time: 08/25/2024 7:57 PM Age: 39 years old Clinical indication: Pain; Chest pressure; Prior surgery; Surgery date: 6+ months; Surgery type: Defibrillator; Additional info: Cp TECHNIQUE: Imaging protocol: Radiologic exam of the chest. Views: 1 view. COMPARISON: CR XR chest 1V portable [id number] 06/22/2024 6:23 PM FINDINGS: Tubes, catheters and devices: Medical devices in place with the battery pack projected over the left lateral chest. Lungs: No focal consolidation or other acute appearing pulmonary opacity. Pleural spaces: No pleural effusion or pneumothorax noted. Heart/Mediastinum: There is cardiomegaly. Bones/joints: No acute osseous abnormality. XR/XR chest 1V portable [id number] IMPRESSION: No acute cardiopulmonary disease.
[2024-08-25 19:45] VITALS: BP 123/72; PULSE 80; RESP 18; TEMP 36.7; O2SAT 98; BMI 28.6
[2024-08-25 20:05] LABS: Basophils # 0.1 10^3/uL (0.0-0.1); Basophils % 0.5 %; Eosinophils # 0.4 10^3/uL (0.0-0.8); Eosinophils % 4.1 %; Hematocrit 45.2 % (37-53); Lymphocytes # 3.8 10^3/uL (0.8-4.8); Lymphocytes % 35.9 %; Mean Corpuscular HGB Conc 33.6 g/dL (30-55); Mean Corpuscular Hemoglobin 29.6 pg (27-33); Mean Corpuscular Volume 87.9 fl (82-101); Mean Platelet Volume 9.5 fL (7.4-10.4); Monocytes % 9.7 %; Neutrophils # 5.18 10^3/uL (1.8-7.7); Neutrophils % 49.5 %; Nucleated Red Blood Cells % 0 %; Platelet Count 224 10^3/cmm (157-399); Red Blood Count 5.14 10^6/uL (3.85-5.65); Red Cell Distribution Width 13.7 % (12.1-15.1); White Blood Count 10.46 10^3/uL (3.29-11.43)
[2024-08-25 20:25] LABS: Troponin(5th) Baseline 7 ng/L (0-15)
[2024-08-25 20:32] LABS: Alanine Aminotransferase 39 U/L (0-41); Albumin Level 4.6 g/dL (3.5-5.2); Alkaline Phosphatase 86 U/L (40-130); Aspartate Amino Transferase 24 U/L (0-40); Blood Urea Nitrogen 20 mg/dL (6-20); Calcium 9.6 mg/dL (8.5-10.5); Carbon Dioxide 24 mmol/L (22-29); Chloride 100 mmol/L (98-107); Creatinine Clr Calc Pharmacy 158.5533; Globulin 2.7 g/dL (1.3-4.6); Glomerular Filtration Rate 106.5 mL/min (90-130); Glucose 103 mg/dL (65-115); Lipase 39 U/L (13-60); Osmolality Calculated 293 mOsm/kg (285-295); Sodium 140 mmol/L (136-145); Total Bilirubin 0.3 mg/dL (0.15-1.2); Total Protein 7.3 g/dL (6.6-8.7)
--- NOTE | 2024-08-25 21:01 | ED_ITS ---
HPI - Chest Pain 2 General: Chief Complaint: Chest Pain Stated Complaint: CP Time Seen by Provider: 08/25/24 20:10 History of Present Illness: 39-year-old male with a history of obstr uctive hypertrophic cardiomyopathy who has a defibrillator in place who presents emergency room for chest pain. This has happened frequently before. He does not have coronary disease. It usually goes away on its own but has persisted longer today. Pain is in his mid chest. Vitals are normal on presentation. No cough. No fevers. No nausea or vomiting. No abdominal pain. Related Data Home Medications Medication Instructions Recorded Confirmed buspirone 15 mg tablet 15 mg PO DAILY 06/12/23 06/12/23 levothyroxine 50 mcg tablet 50 mcg PO DAILY 06/12/23 06/12/23 metoprolol succinate 50 mg 50 mg PO DAILY 06/12/23 06/12/23 tablet,extended release 24 hr Allergies Allergy/AdvReac Type Severity Reaction Status Date / Time morphine Allergy Unknown Verified 06/22/24 18:19 Review of Systems 2 Narrative: General: Alert, no acute distress. Skin: Warm, dry. Head: Normocephalic, atraumatic. Neck: Supple, trachea midline. Eye: Extraocular movements are intact. Ears, nose, mouth and throat: mucosa moist. Cardiovascular: Regular, Normal peripheral perfusion. Respiratory: Lungs are clear to auscultation, respirations are non-labored, breath sounds are equal, Symmetrical chest wall expansion. Gastrointestinal: Soft, Nontender, Non distended Musculoskeletal: Normal ROM, no deformity. Neurological: Alert and oriented, No focal neurological deficit observed. Psychiatric: Cooperative, appropriate mood & affect. [facility] ED 2 PFSH: Medical History Anxiety Social History Substance/Drug Use: never Physical Exam 2 Narrative: EXAM NARRATIVE: General: Alert, no acute distress. Skin: Warm, dry. Head: Normocephalic, atraumatic. Neck: Supple, trachea midline. Eye: Extraocular movements are intact. Ears, nose, mouth and throat: mucosa moist. Cardiovascular: Regular, Normal peripheral perfusion. Respiratory: Lungs are clear to auscultation, respirations are non-labored, breath sounds are equal, Symmetrical chest wall expansion. Gastrointestinal: Soft, Nontender, Non distended Musculoskeletal: Normal ROM, no deformity. Neurological: Alert and oriented, No focal neurological deficit observed. Psychiatric: Cooperative, appropriate mood & affect. Course 2 Vital Signs: Vital signs: Vital Signs Temperature 98.0 F 08/25/24 19:45 Pulse Rate 69 08/25/24 21:17 Respiratory Rate 13 08/25/24 21:17 Blood Pressure 138/78 08/25/24 21:17 Pulse Oximetry 96 08/25/24 21:17 Oxygen Delivery Me thod Room Air 08/25/24 19:45 MDM - Chest Pain Medical Decision Making Differential diagnosis for patient with chest pain includes but is not limited to and based on the above HPI, review of systems and physical exam: Pneumonia. unstable angina. angina. Acute coronary syndrome / PA. Pulmonary embolism. Costochondritis / musculoskeletal. Pleurisy. Pericarditis. Esophageal spasm. Pancreatis. Cholecystitis. Orders placed to evaluate differential diagnosis based on the above differential, HPI and physical exam EKG: Time 1936. Rate 119. Sinus tachycardia. There is some ST depression in aVL. Normal sinus rhythm, No ST-T changes, no ectopy, normal VT & QRS intervals, This was reviewed and interpreted by myself the ER physician at 194. Repeat EKG: Time 2218. Rate 78. Normal sinus rhythm, PVCs nonspecific ST wave abnormalities, normal VT & QRS intervals, This was reviewed and interpreted by myself the ER physician at 2221. Rate has decreased some ST depression is improved. Chest x-ray: Defibrillator in place in the lateral left chest. Stable cardiomegaly. No acute process. No infiltrate. No pneumothorax. This was reviewed and interpreted by myself the ER physician. Lab Review: Laboratory results were reviewed and interpreted by myself the emergency room physician. Lab work is unremarkable. No leukocytosis. No anemia. No renal failure. Troponin is negative. I reviewed the patient's medical record. Reexamination: Patient remained stable. No increased work of breathing. No altered mental status. No focal motor deficits. Assessment and plan: Tachycardia Chest pain Hypertrophic cardiomyopathy - Discharged home - Discussed findings and plan with patient. Answered any questions. - All laboratory values were reviewed and interpreted personally by myself, the ER physician - All imaging was reviewed and interpreted personally by myself, the ER physician. - Evaluation and treatment of this problem were appropriate in the emergency setting Lab Data 08/25/24 19:54 08/25/24 19:54 Radiology Impressions Chest X-Ray 08/25/24 19:39 IMPRESSION: No acute cardiopulmonary disease. Laboratory Results WBC 10.46 10^3/uL (3.29-11.43) 08/25/24 19:54 RBC 5.14 10^6/uL (3.85-5.65) 08/25/24 19:54 Hgb 15.20 g/dL (11.27-16.99) 08/25/24 19:54 Hct 45.2 % (37-53) 08/25/24 19:54 MCV 87.9 fl (82-101) 08/25/24 19:54 MCH 29.6 pg (27-33) 08/25/24 19:54 MCHC 33.6 g/dL (30-55) 08/25/24 19:54 RDW 13.7 % (12.1-15.1) 08/25/24 19:54 Plt Count 224 10^3/cmm (157-399) 08/25/24 19:54 MPV 9.5 fL (7.4-10.4) 08/25/24 19:54 Neut % (Auto) 49.5 % 08/25/24 19:54 Lymph % (Auto) 35.9 % 08/25/24 19:54 [place] % (Auto) 9.7 % 08/25/24 19:54 Eos % (Auto) 4.1 % 08/25/24 19:54 Baso % (Auto) 0.5 % 08/25/24 19:54 Neut # (Auto) 5.18 10^3/uL (1.8-7.7) 08/25/24 19:54 Lymph # (Auto) 3.8 10^3/uL (0.8-4.8) 08/25/24 19:54 [place] # (Auto) 1.0 10^3/uL (0.2-0.9) H 08/25/24 19:54 Eos # (Auto) 0.4 10^3/uL (0.0-0.8) 08/25/24 19:54 Baso # (Auto) 0.1 10^3/uL (0.0-0.1) 08/25/24 19:54 Nucleated RBC % (auto) 0 % 08/25/24 19:54 Nucleated RBCs # 0.0 /100WBC 08/25/24 19:54 D-Dimer 0.50 ug/mLFEU (0-0.59) 08/25/24 19:54 Sodium 140 mmol/L (136-145) 08/25/24 19:54 Potassium 4.0 mmol/L (3.5-5.1) 08/25/24 19:54 Chloride 100 mmol/L (98-107) 08/25/24 19:54 Carbon Dioxide 24 mmol/L (22-29) 08/25/24 19:54 Anion Gap 20.0 (5-19) H 08/25/24 19:54 BUN 20 mg/dL (6-20) 08/25/24 19:54 Creatinine 0.8 mg/dL (0.7-1.2) 08/25/24 19:54 GFR Calculation 106.5 mL/min (90-130) 08/25/24 19:54 Glucose 103 mg/dL (65-115) 08/25/24 19:54 Calculated Osmolality 293 mOsm/kg (285-295) 08/25/24 19:54 Calcium 9.6 mg/dL (8.5-10.5) 08/25/24 19:54 Total Bilirubin 0.3 mg/dL (0.15-1.2) 08/25/24 19:54 AST 24 U/L (0-40) 08/25/24 19:54 ALT 39 U/L (0-41) 08/25/24 19:54 Alkaline Phosphatase 86 U/L (40-130) 08/25/24 19:54 Troponin T Baseline 7 ng/L (0-15) 08/25/24 19:54 NT-Pro-B Natriuret Pep 202 pg/mL (0-125) H 08/25/24 19:54 Total Protein 7.3 g/dL (6.6-8.7) 08/25/24 19:54 Albumin 4.6 g/dL (3.5-5.2) 08/25/24 19:54 Globulin 2.7 g/dL (1.3-4.6) 08/25/24 19:54 Lipase 39 U/L (13-60) 08/25/24 19:54 All radiology interpretation(s) finalized by discharge Discharge Plan Discharge Patient Disposition: Home Clinical Impression: Chest pain, Hypertrophic cardiomyopathy Condition: Stable Prescriptions: No Action metoprolol succinate 50 mg tablet extended release 24 hr 50 mg PO DAILY levothyroxine 50 mcg tablet 50 mcg PO DAILY buspirone 15 mg tablet 15 mg PO DAILY Discharge Orders: Discharge ED (Routine); Ordered 08/25/24 Ordered By: Chiara Healy Referrals: Cirilo Ortiz MD [Primary Care Provider] - Discharge Diet: Usual diet Discharge Activity: Increase activity as tolerated Patient Instructions: Chest Pain (ED) Activity Restrictions/Additional Instructions: Thank you for choosing [facility] for your healthcare needs today. Please realize this is an emergency room and that we are providing you with a medical screening exam and this may not be complete and all inclusive of all the testing and or work up that you may need to determine your ailment or severity of your illness. You have been screened and evaluated and felt safe for discharge. Health conditions do change or evolve sometimes and as such it is important that you follow up with your Primary Doctor to be re checked, 3-5 days is a general good time frame for follow up. You are always welcome to return to the ED for re assessment if your symptoms are worsening or you have new concerns Coding Level of Care Code ED School Athletic Director for Stephanie Pineda
[2024-08-25 21:17] VITALS: BP 138/78; PULSE 69; RESP 13; O2SAT 96
[2024-08-25 21:27] LABS: NT Pro B Type Natriuretic Pept 202 pg/mL (0-125)
--- NOTE | 2024-08-25 22:19 | ECG_ITS ---
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 Measurements Intervals [place] Rate: 78 P: 57 CT: 209 QRS: 38 QRSD: 110 T: 63 QT: 409 QTc: 467 Interpretive Statements SINUS RHYTHM WITH OCCASIONAL SUPRAVENTRICULAR PREMATURE COMPLEXES FIRST DEGREE AV BLOCK LEFT ATRIAL ENLARGEMENT [-0.15mV P-WAVE IN V1/V2] POSSIBLE INFERIOR MYOCARDIAL INFARCTION , OF INDETERMINATE AGE [30 ms Q WAVE IN II/aVF] Compared to ECG 08/25/2024 19:37:38 Myocardial infarct finding now present Sinus tachycardia no longer present Ventricular premature complex(es) no longer present First degree AV block no longer present ST (T wave) deviation no longer present Electronically Signed On 08-25-2024 23:09:47 CDT by Garfield Isidro M.D. [id number]
[2024-08-25 22:38] VITALS: BP 124/83; PULSE 72; RESP 16; O2SAT 98
== END 2024-08-25 22:40 | disposition home or self-care (01) ==
PROVIDERS: Emergency Medicine; Emergency Provider Emergency Medicine; PCP Family Medicine
DX: I42.2 Other hypertrophic cardiomyopathy (principal); R00.0 Tachycardia, unspecified; R07.9 Chest pain, unspecified; Z95.810 Presence of automatic (implantable) cardiac defibrillator
CPT/HCPCS: 36415; 71045; 80053; 83690; 83880; 84484; 85025; 85378; 93005; 99285